=== PATIENT | female | born 1930 | race Caucasian/White ===

== ENCOUNTER 2020-06-28 07:36 | Inpatient (IN) | payer MEDICARE, SELFPAY ==
[~2020-06-28] VITALS: Ht 167.6 cm; Wt 69.8 kg
[2020-06-28] MEDS ORDERED: MORPHINE SULFATE 4 MG/1ML SYG ONE (07:42)
[2020-06-28] MEDS ORDERED: ONDANSETRON HCL 4 MG/2 ML VIAL ONE (07:42)
[2020-06-28 07:59] LABS: BASOPHILS % (AUTO) 0.2 % (0.0-5.0); EOSINOPHILS % (AUTO) 0.1 % (0.0-8.0); HEMATOCRIT 38.5 % (36-48); LYMPHOCYTES % (AUTO) 4.1 % (21.0-51.0); MEAN CORPUSCULAR HEMOGLOBIN 31.9 pg (27.0-33.0); MEAN CORPUSCULAR HGB CONC 35.1 g/dL (32.0-36.0); MONOCYTES % (AUTO) 1.1 % (3.0-13.0); NEUTROPHILS % (AUTO) 94.1 % (40.0-77.0); PLATELET COUNT (AUTO) 286 K/uL (130-400); RED BLOOD CELL COUNT(AUTO) 4.23 MIL/uL (4.00-5.50); RED CELL DISTRIBUTION WIDTH 12.5 % (11.0-15.5); WHITE BLOOD COUNT (AUTO) 17.9 K/uL (4.8-10.8)
[2020-06-28] MEDS ORDERED: KETOROLAC TROMETHAMINE 15MG/ML ONE (08:29)
[2020-06-28 08:31] LABS: ALBUMIN 3.7 g/dL (3.5-5.0); BILIRUBIN,TOTAL 0.8 mg/dL (0.2-1.0); CREATININE 0.8 mg/dL (0.5-1.5); POTASSIUM 3.5 mmol/L (3.5-5.1); TOTAL PROTEIN, SERUM 6.9 g/dL (6.0-8.3)
[2020-06-28 09:01] LABS: APPEARANCE,URINE CLEAR (CLEAR); BILIRUBIN,URINE NEGATIVE (NEGATIVE); COLOR,URINE YELLOW (YELLOW); GLUCOSE, URINE (UA) NEGATIVE (NEGATIVE); KETONES,URINE NEGATIVE (NEGATIVE); LEUKOCYTE ESTERASE ,URINE NEGATIVE (NEGATIVE); NITRATE,URINE NEGATIVE (NEGATIVE); OCCULT BLOOD,URINE TRACE-INTACT (NEGATIVE); PROTEIN,URINE TRACE mg/dL (NEGATIVE); UROBILINOGEN,URINE 0.2 mg/dL (0.2-1.0)
[2020-06-28 09:27] LABS: BACTERIA,URINE Rare /HPF (None Seen); RBC,URINE 0-1 /HPF (0-1); SQUAMOUS EPITHELIAL CELL,UR Rare /HPF (0-2); WBC,URINE 0-1 /HPF (0-1)
[2020-06-28] MEDS ORDERED: ZOSYN 3.375GM+NS 50ML 50 ML IV ONE (09:51)
[2020-06-28] MEDS ORDERED: SODIUM CHLORIDE 0.9% 1000ML 1,000 ML IV ONE (09:52)
[2020-06-28] MEDS: SODIUM CHLORIDE 0.9% 1000ML 1,000 ML IV SCH ×2 (10:30→18:30)
[2020-06-28] MEDS ORDERED: NITROGLYCERIN 0.4 MG SL TAB SL PRN (10:30)
[2020-06-28] MEDS ORDERED: ONDANSETRON HCL 4 MG/2 ML VIAL IV PRN (10:30)
[2020-06-28] MEDS ORDERED: LACTULOSE 20 GM/30 ML UDCUP PO PRN (10:30)
[2020-06-28] MEDS ORDERED: ACETAMINOPHEN 325 MG TAB PO PRN (10:30)
[2020-06-28 11:04] LABS: CHOLESTEROL 230 mg/dL (<200); HDL CHOLESTEROL 99 mg/dL (35-85); LDL DIRECT 97 mg/dL (0-99); TRIGLYCERIDES 92 mg/dL (30-200)
[2020-06-28 11:45] VITALS: BP 127/67
[2020-06-28 16:22] VITALS: BP 103/51
[2020-06-28] MEDS: ZOSYN 3.375GM+NS 50ML 50 ML IV SCH ×2 (17:54→21:02)
[2020-06-28] MEDS: MORPHINE SULFATE 2 MG/ML 1ML SYG IV PRN (17:55)
[2020-06-28 20:08] VITALS: BP 98/52
[2020-06-28] MEDS: FAMOTIDINE/PF 20 MG/2 ML VIAL IV SCH (21:27)
[2020-06-29] VITALS (7 sets, daily range): BP systolic 93–139; BP diastolic 49–84
[2020-06-29] MEDS: SODIUM CHLORIDE 0.9% 1000ML 1,000 ML IV SCH ×2 (02:30→09:44)
[2020-06-29] MEDS: MORPHINE SULFATE 2 MG/ML 1ML SYG IV PRN ×2 (03:32→11:02)
[2020-06-29 04:58] LABS: BASOPHILS % (AUTO) 0.1 % (0.0-5.0); EOSINOPHILS % (AUTO) 0.2 % (0.0-8.0); HEMATOCRIT 32.9 % (36-48); LYMPHOCYTES % (AUTO) 8.4 % (21.0-51.0); MEAN CORPUSCULAR HEMOGLOBIN 30.9 pg (27.0-33.0); MEAN CORPUSCULAR HGB CONC 33.4 g/dL (32.0-36.0); MEAN CORPUSCULAR VOLUME 92.4 fL (79-99); NEUTROPHILS % (AUTO) 86.7 % (40.0-77.0); PLATELET COUNT (AUTO) 247 K/uL (130-400); RED BLOOD CELL COUNT(AUTO) 3.56 MIL/uL (4.00-5.50); RED CELL DISTRIBUTION WIDTH 12.9 % (11.0-15.5); WHITE BLOOD COUNT (AUTO) 18.9 K/uL (4.8-10.8)
[2020-06-29 05:14] LABS: ALBUMIN 2.7 g/dL (3.5-5.0); BILIRUBIN,TOTAL 0.9 mg/dL (0.2-1.0); CREATININE 0.8 mg/dL (0.5-1.5); POTASSIUM 3.6 mmol/L (3.5-5.1); TOTAL PROTEIN, SERUM 5.6 g/dL (6.0-8.3)
[2020-06-29] MEDS: ZOSYN 3.375GM+NS 50ML 50 ML IV SCH ×3 (05:59→20:26)
[2020-06-29] MEDS: FAMOTIDINE/PF 20 MG/2 ML VIAL IV SCH ×2 (09:43→20:25)
[2020-06-29] MEDS: ENOXAPARIN SODIUM 30 MG/0.3 ML SQ SCH (09:43)
[2020-06-29] MEDS: LACTATED RINGERS 1000ML 1,000 ML IV SCH ×2 (11:15→20:26)
[2020-06-29] MEDS: KETOROLAC TROMETHAMINE 15MG/ML IV SCH (12:30)
[2020-06-29] MEDS ORDERED: MORPHINE SULFATE 2 MG/ML 1ML SYG IV PRN (16:30)
[2020-06-29] MEDS ORDERED: HYDROXYZINE HCL 25 MG TABLET PO SCH (17:00)
[2020-06-30] MEDS ORDERED: DiphenhydrAMINE HCL 50 MG/ML VIAL IV SCH (02:00)
[2020-06-30] MEDS: LACTATED RINGERS 1000ML 1,000 ML IV SCH ×3 (03:15→19:18)
[2020-06-30 04:00] VITALS: BP 135/66
[2020-06-30 05:30] LABS: BASOPHILS % (AUTO) 0.3 % (0.0-5.0); EOSINOPHILS % (AUTO) 1.9 % (0.0-8.0); HEMATOCRIT 31.8 % (36-48); LYMPHOCYTES % (AUTO) 8.6 % (21.0-51.0); MEAN CORPUSCULAR HEMOGLOBIN 31.5 pg (27.0-33.0); MEAN CORPUSCULAR HGB CONC 33.6 g/dL (32.0-36.0); MEAN CORPUSCULAR VOLUME 93.5 fL (79-99); MONOCYTES % (AUTO) 4.7 % (3.0-13.0); NEUTROPHILS % (AUTO) 83.9 % (40.0-77.0); PLATELET COUNT (AUTO) 219 K/uL (130-400); RED CELL DISTRIBUTION WIDTH 13.2 % (11.0-15.5); WHITE BLOOD COUNT (AUTO) 14.6 K/uL (4.8-10.8)
[2020-06-30 06:08] LABS: ALBUMIN 2.6 g/dL (3.5-5.0); CREATININE 0.8 mg/dL (0.5-1.5); POTASSIUM 3.5 mmol/L (3.5-5.1); TOTAL PROTEIN, SERUM 5.6 g/dL (6.0-8.3)
[2020-06-30] MEDS: ZOSYN 3.375GM+NS 50ML 50 ML IV SCH ×3 (06:35→20:36)
[2020-06-30 08:00] VITALS: BP 119/61
[2020-06-30] MEDS: FAMOTIDINE/PF 20 MG/2 ML VIAL IV SCH ×2 (08:21→20:36)
[2020-06-30] MEDS: ENOXAPARIN SODIUM 30 MG/0.3 ML SQ SCH (08:22)
[2020-06-30 11:00] VITALS: BP 127/68
[2020-06-30] MEDS: KETOROLAC TROMETHAMINE 15MG/ML IV SCH (12:30)
[2020-06-30 16:00] VITALS: BP 130/68
[2020-06-30 19:36] VITALS: BP 124/55
[2020-06-30] MEDS: HYDROXYZINE HCL 25 MG TABLET PO PRN (20:35)
[2020-06-30] MEDS: KETOROLAC TROMETHAMINE 15MG/ML IV PRN (20:38)
[2020-06-30 23:58] VITALS: BP 122/61
[2020-07-01] MEDS: LACTATED RINGERS 1000ML 1,000 ML IV SCH (03:18)
[2020-07-01 04:00] VITALS: BP 138/72
[2020-07-01 05:27] LABS: BASOPHILS % (AUTO) 0.3 % (0.0-5.0); EOSINOPHILS % (AUTO) 3.9 % (0.0-8.0); HEMATOCRIT 31.8 % (36-48); LYMPHOCYTES % (AUTO) 10.6 % (21.0-51.0); MEAN CORPUSCULAR HEMOGLOBIN 31.3 pg (27.0-33.0); MEAN CORPUSCULAR HGB CONC 33.6 g/dL (32.0-36.0); MONOCYTES % (AUTO) 6.1 % (3.0-13.0); NEUTROPHILS % (AUTO) 78.6 % (40.0-77.0); PLATELET COUNT (AUTO) 214 K/uL (130-400); RED BLOOD CELL COUNT(AUTO) 3.42 MIL/uL (4.00-5.50); RED CELL DISTRIBUTION WIDTH 13.1 % (11.0-15.5); WHITE BLOOD COUNT (AUTO) 12.4 K/uL (4.8-10.8)
[2020-07-01] MEDS: ZOSYN 3.375GM+NS 50ML 50 ML IV SCH ×3 (05:30→20:21)
[2020-07-01 05:44] LABS: ALBUMIN 2.5 g/dL (3.5-5.0); BILIRUBIN,TOTAL 1.1 mg/dL (0.2-1.0); CREATININE 0.7 mg/dL (0.5-1.5); POTASSIUM 3.1 mmol/L (3.5-5.1); TOTAL PROTEIN, SERUM 5.7 g/dL (6.0-8.3)
[2020-07-01] MEDS: POTASSIUM CHLORIDE 20MEQ/100ML 100 ML IV PRN (06:54)
[2020-07-01 08:01] VITALS: BP 120/58
[2020-07-01] MEDS: ENOXAPARIN SODIUM 30 MG/0.3 ML SQ SCH (09:00)
[2020-07-01] MEDS: FAMOTIDINE/PF 20 MG/2 ML VIAL IV SCH ×2 (09:05→20:22)
[2020-07-01] MEDS: LIDOCAINE 5% TOPICAL PATCH TP SCH (09:05)
[2020-07-01 11:22] VITALS: BP 125/68
[2020-07-01] MEDS ORDERED: PROPOFOL 10 MG/ML 20ML VIAL IV ONE (13:37)
[2020-07-01] MEDS ORDERED: SUCCINYLCHOLINE 200MG/10ML SYR ONE (13:38)
[2020-07-01] MEDS ORDERED: FENTANYL CITRATE PF 50 MCG/1 ML 2ML VIAL ONE (13:40)
[2020-07-01] MEDS ORDERED: INDOMETHACIN 50 MG SUPP.RECT RC SCH (13:45)
[2020-07-01] MEDS ORDERED: IOHEXOL-350 50ML VIAL IV ONE (13:47)
[2020-07-01] MEDS ORDERED: MAGNESIUM 2GM PREMIX 50ML 50 ML IV ONE (14:59)
[2020-07-01 16:36] VITALS: BP 126/58
[2020-07-01 20:13] VITALS: BP 155/80
[2020-07-01] MEDS: KETOROLAC TROMETHAMINE 15MG/ML IV PRN (20:22)
[2020-07-01] MEDS: HYDROXYZINE HCL 25 MG TABLET PO PRN (20:28)
[2020-07-02 00:08] VITALS: BP 124/68
[2020-07-02] MEDS ORDERED: ALPRAZOLAM 0.25 MG TABLET PO ONE (04:15)
[2020-07-02 04:20] VITALS: BP 154/91
[2020-07-02] MEDS: ZOSYN 3.375GM+NS 50ML 50 ML IV SCH ×3 (04:25→21:37)
[2020-07-02] MEDS ORDERED: ALPRAZOLAM 0.5 MG TABLET ONE (04:25)
[2020-07-02] MEDS ORDERED: ALPRAZOLAM 0.5 MG TABLET PO ONE (04:30)
[2020-07-02 04:34] LABS: BASOPHILS % (AUTO) 0.2 % (0.0-5.0); HEMATOCRIT 37.3 % (36-48); LYMPHOCYTES % (AUTO) 7.1 % (21.0-51.0); MEAN CORPUSCULAR HEMOGLOBIN 31.4 pg (27.0-33.0); MEAN CORPUSCULAR VOLUME 92.1 fL (79-99); NEUTROPHILS % (AUTO) 84.1 % (40.0-77.0); PLATELET COUNT (AUTO) 256 K/uL (130-400); RED BLOOD CELL COUNT(AUTO) 4.05 MIL/uL (4.00-5.50); RED CELL DISTRIBUTION WIDTH 12.9 % (11.0-15.5); WHITE BLOOD COUNT (AUTO) 13.4 K/uL (4.8-10.8)
[2020-07-02 04:52] LABS: ALBUMIN 2.9 g/dL (3.5-5.0); BILIRUBIN,TOTAL 1.3 mg/dL (0.2-1.0); CREATININE 0.7 mg/dL (0.5-1.5); TOTAL PROTEIN, SERUM 6.8 g/dL (6.0-8.3); TROPONIN I 0.07 ng/mL (0.00-0.06)
[2020-07-02 08:42] VITALS: BP 153/83
[2020-07-02] MEDS: LIDOCAINE 5% TOPICAL PATCH TP SCH (08:57)
[2020-07-02] MEDS: FAMOTIDINE/PF 20 MG/2 ML VIAL IV SCH ×2 (08:57→21:37)
[2020-07-02] MEDS ORDERED: METOPROLOL TARTRATE 50 MG TAB ONE (10:29)
[2020-07-02] MEDS: HEPARIN SODIUM 5000UNIT/ML 1ML VIAL SQ SCH ×2 (10:31→21:46)
[2020-07-02] MEDS ORDERED: METOPROLOL TARTRATE 50 MG TAB PO ONE (11:40)
[2020-07-02 11:53] VITALS: BP 170/87
[2020-07-02] MEDS ORDERED: REGADENOSON 0.4 MG/5 ML PF SYG IVP SCH (12:15)
[2020-07-02] MEDS ORDERED: TRAV5DRO OP (16:20)
[2020-07-02] MEDS ORDERED: TRIA1CAP6 PO (16:20)
[2020-07-02] MEDS ORDERED: OMEP20TA25 PO (16:20)
[2020-07-02] MEDS ORDERED: CALCITONIN 3.7 ML AEROSOL NS SCH ×2 (16:45)
[2020-07-02 17:53] VITALS: BP 158/86
[2020-07-02 20:00] VITALS: BP 149/81
[2020-07-02] MEDS: METOPROLOL TARTRATE 50 MG TAB PO SCH (21:38)
[2020-07-03] VITALS (14 sets, daily range): BP systolic 121–159; BP diastolic 41–91
[2020-07-03] MEDS: ZOSYN 3.375GM+NS 50ML 50 ML IV SCH ×3 (04:37→20:39)
[2020-07-03 05:00] LABS: BASOPHILS % (AUTO) 0.2 % (0.0-5.0); HEMATOCRIT 33.6 % (36-48); LYMPHOCYTES % (AUTO) 10.1 % (21.0-51.0); MEAN CORPUSCULAR HGB CONC 34.2 g/dL (32.0-36.0); MEAN CORPUSCULAR VOLUME 90.6 fL (79-99); MONOCYTES % (AUTO) 8.3 % (3.0-13.0); NEUTROPHILS % (AUTO) 78.8 % (40.0-77.0); PLATELET COUNT (AUTO) 253 K/uL (130-400); RED BLOOD CELL COUNT(AUTO) 3.71 MIL/uL (4.00-5.50); RED CELL DISTRIBUTION WIDTH 12.3 % (11.0-15.5)
[2020-07-03 05:19] LABS: ALBUMIN 2.5 g/dL (3.5-5.0); BILIRUBIN,TOTAL 1.3 mg/dL (0.2-1.0); CREATININE 0.6 mg/dL (0.5-1.5)
[2020-07-03 05:22] LABS: POTASSIUM 2.7 mmol/L (3.5-5.1)
[2020-07-03] MEDS ORDERED: LIDOCAINE HCL-MPF 1% 2ML VIAL ONE ×3 (05:34→15:00)
[2020-07-03] MEDS ORDERED: LIDOCAINE HCL 2% 20ML IV SCH (05:45)
[2020-07-03] MEDS: POTASSIUM CHLORIDE 20MEQ/100ML 100 ML IV PRN ×3 (06:06→15:19)
[2020-07-03] MEDS ORDERED: POTASSIUM CHLORIDE 20MEQ/100ML 100 ML IV PRN (08:00)
[2020-07-03] MEDS: FAMOTIDINE/PF 20 MG/2 ML VIAL IV SCH ×2 (08:37→20:39)
[2020-07-03] MEDS: METOPROLOL TARTRATE 50 MG TAB PO SCH ×2 (08:37→20:39)
[2020-07-03] MEDS: LIDOCAINE 5% TOPICAL PATCH TP SCH (08:38)
[2020-07-03] MEDS: HEPARIN SODIUM 5000UNIT/ML 1ML VIAL SQ SCH ×2 (08:49→20:38)
[2020-07-03 14:39] LABS: CREATININE 0.7 mg/dL (0.5-1.5); MAGNESIUM 1.8 mg/dL (1.80-2.40)
[2020-07-03 14:55] LABS: POTASSIUM 2.9 mmol/L (3.5-5.1)
[2020-07-03] MEDS ORDERED: POTASSIUM CHLORIDE 20 MEQ ERTAB PO SCH (15:00)
[2020-07-03] MEDS ORDERED: POTASSIUM CHLORIDE 20 MEQ ERTAB PO ONE (15:09)
[2020-07-03 19:46] LABS: CREATININE 0.7 mg/dL (0.5-1.5); POTASSIUM 3.6 mmol/L (3.5-5.1)
[2020-07-03] MEDS: HYDROXYZINE HCL 25 MG TABLET PO PRN (20:39)
[2020-07-04] VITALS (8 sets, daily range): BP systolic 127–164; BP diastolic 48–82
[2020-07-04] MEDS: ZOSYN 3.375GM+NS 50ML 50 ML IV SCH ×3 (04:13→21:11)
[2020-07-04 06:50] LABS: BASOPHILS % (AUTO) 0.4 % (0.0-5.0); EOSINOPHILS % (AUTO) 3.3 % (0.0-8.0); HEMATOCRIT 32.8 % (36-48); LYMPHOCYTES % (AUTO) 13.3 % (21.0-51.0); MEAN CORPUSCULAR HEMOGLOBIN 31.1 pg (27.0-33.0); MEAN CORPUSCULAR HGB CONC 34.5 g/dL (32.0-36.0); MEAN CORPUSCULAR VOLUME 90.4 fL (79-99); MONOCYTES % (AUTO) 8.8 % (3.0-13.0); NEUTROPHILS % (AUTO) 73.4 % (40.0-77.0); PLATELET COUNT (AUTO) 248 K/uL (130-400); RED BLOOD CELL COUNT(AUTO) 3.63 MIL/uL (4.00-5.50); RED CELL DISTRIBUTION WIDTH 12.8 % (11.0-15.5); WHITE BLOOD COUNT (AUTO) 9.8 K/uL (4.8-10.8)
[2020-07-04 07:09] LABS: ALBUMIN 2.3 g/dL (3.5-5.0); BILIRUBIN,TOTAL 0.9 mg/dL (0.2-1.0); CREATININE 0.7 mg/dL (0.5-1.5); POTASSIUM 3.2 mmol/L (3.5-5.1); TOTAL PROTEIN, SERUM 5.6 g/dL (6.0-8.3)
[2020-07-04] MEDS: LIDOCAINE 5% TOPICAL PATCH TP SCH (08:27)
[2020-07-04] MEDS: METOPROLOL TARTRATE 50 MG TAB PO SCH ×2 (08:27→21:11)
[2020-07-04] MEDS: FAMOTIDINE/PF 20 MG/2 ML VIAL IV SCH ×2 (08:27→21:11)
[2020-07-04] MEDS: HEPARIN SODIUM 5000UNIT/ML 1ML VIAL SQ SCH ×2 (08:36→21:14)
[2020-07-04 14:57] LABS: CREATININE 0.6 mg/dL (0.5-1.5); POTASSIUM 3.4 mmol/L (3.5-5.1)
[2020-07-04] MEDS ORDERED: POTASSIUM CHLORIDE 20 MEQ ERTAB PO SCH (15:30)
[2020-07-04] MEDS: HYDROXYZINE HCL 25 MG TABLET PO PRN (21:15)
[2020-07-05 03:42] VITALS: BP 146/69
[2020-07-05] MEDS: ZOSYN 3.375GM+NS 50ML 50 ML IV SCH ×3 (04:56→22:07)
[2020-07-05 05:31] LABS: BASOPHILS % (AUTO) 0.4 % (0.0-5.0); EOSINOPHILS % (AUTO) 2.9 % (0.0-8.0); HEMATOCRIT 34.9 % (36-48); LYMPHOCYTES % (AUTO) 15.5 % (21.0-51.0); MEAN CORPUSCULAR HEMOGLOBIN 31.5 pg (27.0-33.0); MEAN CORPUSCULAR HGB CONC 35.2 g/dL (32.0-36.0); MEAN CORPUSCULAR VOLUME 89.3 fL (79-99); MONOCYTES % (AUTO) 8.6 % (3.0-13.0); NEUTROPHILS % (AUTO) 71.9 % (40.0-77.0); PLATELET COUNT (AUTO) 279 K/uL (130-400); RED BLOOD CELL COUNT(AUTO) 3.91 MIL/uL (4.00-5.50); RED CELL DISTRIBUTION WIDTH 12.5 % (11.0-15.5); WHITE BLOOD COUNT (AUTO) 10.2 K/uL (4.8-10.8)
[2020-07-05 05:58] LABS: CREATININE 0.6 mg/dL (0.5-1.5)
[2020-07-05 06:06] LABS: POTASSIUM 2.7 mmol/L (3.5-5.1)
[2020-07-05] MEDS ORDERED: LIDOCAINE HCL-MPF 1% 2ML VIAL ONE (06:31)
[2020-07-05] MEDS: POTASSIUM CHLORIDE 20MEQ/100ML 100 ML IV PRN ×2 (06:50→14:26)
[2020-07-05 08:00] VITALS: BP 186/97
[2020-07-05] MEDS: AMIODARONE HCL 200 MG TABLET PO SCH ×2 (10:48→22:06)
[2020-07-05] MEDS: FAMOTIDINE/PF 20 MG/2 ML VIAL IV SCH ×2 (10:48→22:07)
[2020-07-05] MEDS: LIDOCAINE 5% TOPICAL PATCH TP SCH (10:48)
[2020-07-05] MEDS: METOPROLOL TARTRATE 50 MG TAB PO SCH ×2 (10:48→22:06)
[2020-07-05] MEDS: POTASSIUM CHLORIDE 20 MEQ ERTAB PO SCH ×3 (10:49→22:06)
[2020-07-05] MEDS: HEPARIN SODIUM 5000UNIT/ML 1ML VIAL SQ SCH (10:51)
[2020-07-05 11:00] VITALS: BP 126/57
[2020-07-05] MEDS: MAGNESIUM 2GM PREMIX 50ML 50 ML IV PRN (11:09)
[2020-07-05 13:41] LABS: CREATININE 0.7 mg/dL (0.5-1.5)
[2020-07-05 16:00] VITALS: BP 128/58
[2020-07-05 18:02] LABS: CHLORIDE,URINE RANDOM 95 mmol/L (110-250); CREATININE,URINE RANDOM 163 mg/dL (30-135); SODIUM,URINE RANDOM 51 mmol/l (40-220)
[2020-07-05 20:22] VITALS: BP 128/69
[2020-07-05] MEDS ORDERED: ENOXAPARIN SODIUM 80 MG/0.8 ML SQ SCH (21:00)
[2020-07-05] MEDS: HYDROXYZINE HCL 25 MG TABLET PO PRN (23:17)
[2020-07-05 23:32] VITALS: BP 143/75
[2020-07-06 03:54] VITALS: BP 136/65
[2020-07-06] MEDS: ZOSYN 3.375GM+NS 50ML 50 ML IV SCH ×2 (04:04→13:15)
[2020-07-06 05:15] LABS: BASOPHILS % (AUTO) 0.4 % (0.0-5.0); EOSINOPHILS % (AUTO) 3.7 % (0.0-8.0); HEMATOCRIT 33.4 % (36-48); LYMPHOCYTES % (AUTO) 15.5 % (21.0-51.0); MEAN CORPUSCULAR HGB CONC 34.7 g/dL (32.0-36.0); MEAN CORPUSCULAR VOLUME 89.3 fL (79-99); MONOCYTES % (AUTO) 8.4 % (3.0-13.0); NEUTROPHILS % (AUTO) 71.5 % (40.0-77.0); PLATELET COUNT (AUTO) 273 K/uL (130-400); RED BLOOD CELL COUNT(AUTO) 3.74 MIL/uL (4.00-5.50); RED CELL DISTRIBUTION WIDTH 12.5 % (11.0-15.5); WHITE BLOOD COUNT (AUTO) 10.1 K/uL (4.8-10.8)
[2020-07-06 05:27] LABS: CREATININE 0.6 mg/dL (0.5-1.5); MAGNESIUM 1.7 mg/dL (1.80-2.40); POTASSIUM 3.2 mmol/L (3.5-5.1)
[2020-07-06 08:00] VITALS: BP 141/72
[2020-07-06] MEDS: POTASSIUM CHLORIDE 20 MEQ ERTAB PO SCH (09:14)
[2020-07-06] MEDS: METOPROLOL TARTRATE 50 MG TAB PO SCH (09:14)
[2020-07-06] MEDS: AMIODARONE HCL 200 MG TABLET PO SCH (09:14)
[2020-07-06] MEDS: FAMOTIDINE/PF 20 MG/2 ML VIAL IV SCH (09:14)
[2020-07-06] MEDS: LIDOCAINE 5% TOPICAL PATCH TP SCH (09:15)
[2020-07-06] MEDS ORDERED: POTASSIUM CHLORIDE 20 MEQ ERTAB PO SCH ×2 (11:00→17:20)
[2020-07-06 12:00] VITALS: BP 124/68
[2020-07-06] MEDS ORDERED: APIXABAN 5 MG TABLET PO SCH (14:10)
[2020-07-06 15:04] LABS: CREATININE 0.7 mg/dL (0.5-1.5); POTASSIUM 3.3 mmol/L (3.5-5.1)
[2020-07-06] MEDS: MAGNESIUM 2GM PREMIX 50ML 50 ML IV PRN (15:08)
[2020-07-06 16:00] VITALS: BP 138/70
[2020-07-11] MEDS ORDERED: AMIODARONE HCL 200 MG TABLET PO SCH (09:00)
== END 2020-07-06 18:20 | disposition home or self-care (01) | DRG 871 ==
LOC: EDH 07:36 → EDHIP 10:30 → 3AH 11:57 → 3DH 07-02 10:13
PROVIDERS: ADMIT Hospitalist; ATTEND Hospitalist
DX: A41.9 Sepsis, unspecified organism (principal); K85.10 Biliary acute pancreatitis without necrosis or infection; K80.62 Calculus of gallbladder and bile duct with acute cholecystitis without obstruction; E87.1 Hypo-osmolality and hyponatremia; E44.1 Mild protein-calorie malnutrition; M48.54XA Collapsed vertebra, not elsewhere classified, thoracic region, initial encounter for fracture; M48.56XA Collapsed vertebra, not elsewhere classified, lumbar region, initial encounter for fracture; I47.2 Ventricular tachycardia; R65.20 Severe sepsis without septic shock; Z53.8 Procedure and treatment not carried out for other reasons; E87.6 Hypokalemia; I48.0 Paroxysmal atrial fibrillation; R53.81 Other malaise; Z20.828 Contact with and (suspected) exposure to other viral communicable diseases; G89.29 Other chronic pain; M85.88 Other specified disorders of bone density and structure, other site; H40.9 Unspecified glaucoma; I27.20 Pulmonary hypertension, unspecified; F41.9 Anxiety disorder, unspecified; G43.909 Migraine, unspecified, not intractable, without status migrainosus; I25.10 Atherosclerotic heart disease of native coronary artery without angina pectoris; E78.5 Hyperlipidemia, unspecified; E66.9 Obesity, unspecified; E11.9 Type 2 diabetes mellitus without complications; E83.42 Hypomagnesemia; I08.3 Combined rheumatic disorders of mitral, aortic and tricuspid valves; I10 Essential (primary) hypertension; K21.9 Gastro-esophageal reflux disease without esophagitis; Z83.3 Family history of diabetes mellitus; Z82.49 Family history of ischemic heart disease and other diseases of the circulatory system; Z80.1 Family history of malignant neoplasm of trachea, bronchus and lung; Z81.2 Family history of tobacco abuse and dependence; Z83.49 Family history of other endocrine, nutritional and metabolic diseases; Z83.6 Family history of other diseases of the respiratory system; Z68.24 Body mass index [BMI] 24.0-24.9, adult
CPT/HCPCS: 36415; 71045; 72070; 72100; 74176; 74181; 76700; 78452; 80048; 80053; 80061; 81001; 82150; 82436; 82550; 82570; 83690; 83735; 83874; 84120; 84132; 84300; 84484; 85025; 87426; 93005; 93017; 93306; 93356; 93880; 96374; 97039; A9500; G0378; J0330; J1644; J1650; J1885; J2270; J2405; J2543; J2704; J2785; J3010; J3475; J3480; J3490; J7030; J7120; Q9967; U0003

== ENCOUNTER 2020-07-07 00:26 | Observation (INO) | payer MEDICARE ==
[2020-07-07] VITALS (39 sets, daily range): BP systolic 95–133; BP diastolic 44–71
[~2020-07-07] VITALS: Ht 166.4 cm; Wt 70.3 kg
[~2020-07-07 00:26] MED LIST: OMEP20TA25 PO; TRAV5DRO OP; TRIA1CAP6 PO
[2020-07-07] MEDS ORDERED: ONDANSETRON HCL 4 MG/2 ML VIAL ONE (01:07)
[2020-07-07] MEDS ORDERED: FAMOTIDINE/PF 20 MG/2 ML VIAL IV ONE (01:08)
[2020-07-07 01:09] LABS: BILIRUBIN,URINE Negative (NEGATIVE); COLOR,URINE Dark Yellow (YELLOW); GLUCOSE, URINE (UA) Negative (NEGATIVE); KETONES,URINE Negative (NEGATIVE); LEUKOCYTE ESTERASE ,URINE Trace (NEGATIVE); NITRATE,URINE Negative (NEGATIVE); OCCULT BLOOD,URINE Nonhemolyzed Trace (NEGATIVE); PH,URINE 6.5 (5.0-8.0); PROTEIN,URINE POS 1+ mg/dL (NEGATIVE)
[2020-07-07 01:11] LABS: APPEARANCE,URINE HAZY (CLEAR)
[2020-07-07 01:13] LABS: BASOPHILS % (AUTO) 0.3 % (0.0-5.0); LYMPHOCYTES % (AUTO) 6.3 % (21.0-51.0); MEAN CORPUSCULAR HEMOGLOBIN 31.3 pg (27.0-33.0); MEAN CORPUSCULAR HGB CONC 34.7 g/dL (32.0-36.0); MEAN CORPUSCULAR VOLUME 90.2 fL (79-99); MONOCYTES % (AUTO) 6.7 % (3.0-13.0); NEUTROPHILS % (AUTO) 85.3 % (40.0-77.0); PLATELET COUNT (AUTO) 275 K/uL (130-400); RED BLOOD CELL COUNT(AUTO) 3.77 MIL/uL (4.00-5.50); RED CELL DISTRIBUTION WIDTH 12.9 % (11.0-15.5); WHITE BLOOD COUNT (AUTO) 13.7 K/uL (4.8-10.8)
[2020-07-07 01:21] LABS: AMORPHOUS SEDIMENT,UR Few /LPF (None Seen); BACTERIA,URINE Few /HPF (None Seen); MUCUS,URINE Few LPF (None Seen); SQUAMOUS EPITHELIAL CELL,UR 0-2 /HPF (0-2)
[2020-07-07 01:24] LABS: CREATININE 0.8 mg/dL (0.5-1.5); POTASSIUM 3.8 mmol/L (3.5-5.1)
[2020-07-07 01:26] LABS: INR 1.12 (0.85-1.15); PARTIAL THROMBOPLASTIN TIME 29.6 SEC (26.3-35.5)
[2020-07-07 01:28] LABS: ALBUMIN 2.6 g/dL (3.5-5.0); BILIRUBIN,TOTAL 0.8 mg/dL (0.2-1.0); TOTAL PROTEIN, SERUM 6.5 g/dL (6.0-8.3)
[2020-07-07 02:35] LABS: ABG BASE EXCESS 1.7 mmol/L (-2.0-3.0); ABG HCO3 25.6 mmol/L (21.0-28.0); ABG OXYGEN SATURATION 94.1 % (95.0-99.0); ABG PCO2 38 mmHg (32-45)
[2020-07-07] MEDS ORDERED: AZITHROMYCIN 500MG+NS 250ML 250 ML IV ONE (02:35)
[2020-07-07] MEDS ORDERED: SODIUM CHLORIDE 0.9% 50 ML IV ONE (02:35)
[2020-07-07] MEDS ORDERED: CEFTRIAXONE SODIUM 2 GM VIAL ONE (02:35)
[2020-07-07] MEDS ORDERED: ONDANSETRON HCL 4 MG/2 ML VIAL IV PRN (03:00)
[2020-07-07] MEDS: CEFTRIAXONE SODIUM 1 GM IV SCH (03:00)
[2020-07-07] MEDS ORDERED: ERGOCALCIFEROL (VITAMIN D2) 50,000 UNIT CAPSULE PO ONE (03:00)
[2020-07-07] MEDS ORDERED: LACTULOSE 20 GM/30 ML UDCUP PO PRN (03:00)
[2020-07-07] MEDS: AZITHROMYCIN 500MG+NS 250ML 250 ML IV SCH (03:00)
[2020-07-07] MEDS ORDERED: ACETAMINOPHEN 325 MG TAB PO PRN ×2 (03:00)
[2020-07-07] MEDS: SODIUM CHLORIDE 0.9% 1000ML 1,000 ML IV SCH (03:15)
[2020-07-07 04:25] LABS: CRP QUANTITATIVE 150.8 mg/L (0.00-9.0)
[2020-07-07] MEDS ORDERED: IOHEXOL-350 75 ML VIAL IV ONE (07:18)
[2020-07-07] MEDS: ENOXAPARIN SODIUM 40 MG/0.4 ML SYRINGE SQ SCH (10:45)
[2020-07-07] MEDS: FAMOTIDINE/PF 20 MG/2 ML VIAL IV SCH ×3 (10:45→21:00)
[2020-07-07] MEDS: ZINC SULFATE 220 CAPSULE PO SCH (10:45)
[2020-07-07] MEDS: ASCORBIC ACID 500 MG TAB PO SCH (10:45)
--- NOTE | 2020-07-07 11:15 | NUR ---
cm note spoke to pt's granddaughter Edda, who is a nurse, and she states that pt lives alone, has a friend reuben that assists. states that she is from out of town, but has plans to fly down today and should be here by 930pm and Edda states she plans to stay with pt for 2 weeks and she wishes to come and picker tender helper pt at hospital at that time. did inform her that this cm would update dr Rogers. . and janine patel. states she will speak to pt's daughter Areli and update on above. Addendum: 07/07/20 at 1559 by ALOK SELF Amended: Links added.
--- NOTE | 2020-07-07 16:00 | NUR ---
cm note spoke pt pt's primary nurse and states daughter los [phone] called in and she states that pts granddaughter Edda was not able to secure a flight to come in and knot picker cloth pt today. this cm called Edda martínez at [phone]. and left a voicemail left for her to return this cm call. pending callback updated primary nurse and also informed nurse that information requested by Edda regarding palliative/hospice info left in chart envelope. since Edda states she will explain to pt at her own pace regarding what hospice, etc. is.
--- NOTE | 2020-07-07 16:13 | NUR ---
CM NOTE SPOKE TO pt's granddaughter Edda, and states that she was not able to secure a flight for today, but will have a flight and arrive in [place] at approximately 1015 am, thursday. and will be here to pick her up to home. she has already spoken to her mother Areli and gave update. primary nurse updated on above.
[2020-07-08] VITALS (10 sets, daily range): BP systolic 116–157; BP diastolic 55–78
[2020-07-08] MEDS: SODIUM CHLORIDE 0.9% 1000ML 1,000 ML IV SCH ×2 (00:53→05:35)
[2020-07-08] MEDS: FAMOTIDINE/PF 20 MG/2 ML VIAL IV SCH (00:54)
[2020-07-08] MEDS: AZITHROMYCIN 500MG+NS 250ML 250 ML IV SCH (03:00)
[2020-07-08] MEDS: CEFTRIAXONE SODIUM 1 GM IV SCH (03:00)
[2020-07-08 04:27] LABS: BASOPHILS % (AUTO) 0.4 % (0.0-5.0); EOSINOPHILS % (AUTO) 2.4 % (0.0-8.0); HEMATOCRIT 31.5 % (36-48); LYMPHOCYTES % (AUTO) 10.3 % (21.0-51.0); MEAN CORPUSCULAR HEMOGLOBIN 30.7 pg (27.0-33.0); MEAN CORPUSCULAR VOLUME 92.9 fL (79-99); MONOCYTES % (AUTO) 7.7 % (3.0-13.0); NEUTROPHILS % (AUTO) 78.8 % (40.0-77.0); PLATELET COUNT (AUTO) 254 K/uL (130-400); RED BLOOD CELL COUNT(AUTO) 3.39 MIL/uL (4.00-5.50); RED CELL DISTRIBUTION WIDTH 13.2 % (11.0-15.5); WHITE BLOOD COUNT (AUTO) 13.1 K/uL (4.8-10.8)
[2020-07-08 04:44] LABS: ALBUMIN 2.1 g/dL (3.5-5.0); BILIRUBIN,TOTAL 0.5 mg/dL (0.2-1.0); CREATININE 0.8 mg/dL (0.5-1.5); CRP QUANTITATIVE 133.4 mg/L (0.00-9.0); POTASSIUM 3.8 mmol/L (3.5-5.1); TOTAL PROTEIN, SERUM 5.6 g/dL (6.0-8.3)
[2020-07-08] MEDS: ENOXAPARIN SODIUM 40 MG/0.4 ML SYRINGE SQ SCH (08:58)
[2020-07-08] MEDS: ASCORBIC ACID 500 MG TAB PO SCH (08:58)
[2020-07-08] MEDS: ZINC SULFATE 220 CAPSULE PO SCH (08:58)
[2020-07-08] MEDS ORDERED: ONDANSETRON 4 MG TABLET PO PRN (10:45)
[2020-07-08] MEDS ORDERED: METRONIDAZOLE 250 MG TABLET PO SCH (10:45)
[2020-07-08] MEDS ORDERED: PANT40TA55 PO (11:07)
[2020-07-08] MEDS ORDERED: ONDA8TAB12 PO (11:07)
[2020-07-08] MEDS ORDERED: LEVO500T89 PO (11:07)
[2020-07-08] MEDS ORDERED: METR-152 PO (11:07)
[2020-07-08] MEDS ORDERED: AMIO100T4 PO (11:11)
--- NOTE | 2020-07-08 11:30 | NUR ---
CM note call received from pt's daughter Areli and requested that cm obtain hospice referral, with [employer]. informed her I would obtained orders and need to speak to pt to ensure she agrees. she verbalizes understanding. spoke to dr pruitt and he is agreeable for referral.. orders received.
[2020-07-08] MEDS ORDERED: LEVOFLOXACIN 500 MG TABLET PO SCH (11:42)
--- NOTE | 2020-07-08 12:00 | NUR ---
cm note 1200received call from los daughter and also had a phone conference with Lucas at [facility], informed that would speak to pt to obtain consent for hospice. also received call from grand daughter Edda and in agreement.
--- NOTE | 2020-07-08 12:45 | NUR ---
cm note received call from pt's daughter los and granddaughter and wish to speak to md regarding plan of care and prognosis, Dr Pruitt came on the line and spoke to them on conference call, and updated on pt's status, and plan of care. Dr pruitt proceeded to go and visit pt, and update on her progrnosis and options for care including hospice as an option. pt states she does not wish to go on hospice services at this time. she prefers to wait and decide later on. however, she did agree for referral to [facility] only for informational purposes and for release of information to them. made aware that she would have to get orders from PCP if she decides to start services for hospice. pt verbalizes understanding. call made to daughter Los and Edda granddaughter updated on above. spoke to sanket with [facility] and verbalizes understanding.
[2020-07-08] MEDS ORDERED: NICARDIPINE HCL 25 MG/10 ML ML IV ONE (23:01)
[2020-07-08] MEDS ORDERED: SODIUM CHLORIDE 0.9% 250 ML IV ONE (23:03)
--- NOTE | 2020-07-11 09:25 | NUR ---
[facility]UR recd. call on this day from pt's dtr Areli, requesting referral to hospice for her mother who was discharged over the weekend. Dtr. requesting referral be made to [facility]. [facility] explained that after review of medical record, pt. declined referral, however, did agree to receive information from [facility] and was instructed to follow up with PCP later if/when she was ready for hospice. Dtr. stated that pt. did not understand what she was told and again requested referral from this worker. Dtr. informed that this worker would contact [facility] for assistance. [facility] contacted [facility] who is aware of dtr. attempting to obtain order for hospice and Lidia to follow up with [facility] for order. Call received from [facility] stating she was able to obtain order for hospice services and dtr. Areli has been made aware.
== END 2020-07-08 13:25 | disposition home or self-care (01) ==
LOC: EDH 00:26 → OBSVTOIN 02:46 → EDHIP 02:46 → INTOOBSV 02:46 → 2BH 08:08
PROVIDERS: ADMIT Internal Medicine; ATTEND Internal Medicine
DX: J18.9 Pneumonia, unspecified organism (principal); Z20.828 Contact with and (suspected) exposure to other viral communicable diseases; K85.90 Acute pancreatitis without necrosis or infection, unspecified; N39.0 Urinary tract infection, site not specified; K86.1 Other chronic pancreatitis; E87.1 Hypo-osmolality and hyponatremia; K21.9 Gastro-esophageal reflux disease without esophagitis; K80.20 Calculus of gallbladder without cholecystitis without obstruction; J44.0 Chronic obstructive pulmonary disease with (acute) lower respiratory infection; I48.91 Unspecified atrial fibrillation; K85.10 Biliary acute pancreatitis without necrosis or infection; I10 Essential (primary) hypertension; I08.3 Combined rheumatic disorders of mitral, aortic and tricuspid valves; E78.5 Hyperlipidemia, unspecified; I47.2 Ventricular tachycardia; G89.29 Other chronic pain; E44.1 Mild protein-calorie malnutrition; Z79.899 Other long term (current) drug therapy
CPT/HCPCS: 36415 ×2; 36600; 71045; 71275; 80053 ×2; 81001; 82728 ×2; 82803; 83605; 83615 ×2; 83690; 84484; 85025 ×2; 85378 ×2; 85610; 85730; 86140 ×2; 86900; 86901; 87040 ×2; 87088; 87426; 87486; 87581; 87633; 87798; 87804 ×2; 93005; 96361; 96365; 96372 ×2; 96375 ×2; 96376 ×3; 99285; G0378 ×34; J0456 ×2; J0696 ×2; J1650 ×2; J2405; J3490 ×4; J7050; Q9967; U0003